=== PATIENT | female | born 1940 | race Caucasian/White ===

== ENCOUNTER 2022-01-23 05:20 | Observation (INO) ==
[2022-01-23] MEDS ORDERED: Naloxone 0.4 MG/ML INJ IVP PRN (10:26)
[2022-01-23 11:04] LABS: Basophils % 0.4 %; Eosinophils # 0.1 K/mcL (0.0-0.6); Eosinophils % 0.9 %; Hematocrit 39.6 % (35.3-44.9); Hemoglobin 13.2 g/dL (11.5-15.4); Immature Granulocytes % 0.4 % (0-4); Lymphocytes # 2.8 K/mcL (0.6-4.6); Lymphocytes % 25.8 %; Mean Corpuscular HGB Conc 33.3 g/dL (31.6-35.5); Mean Corpuscular Hemoglobin 32.2 pg (28.0-33.3); Mean Corpuscular Volume 96.6 fL (83.0-100.0); Mean Platelet Volume 10.2 fL (9.4-12.4); Monocytes # 0.7 K/mcL (0.0-1.3); Monocytes % 6.6 %; Neutrophils # 7.2 K/mcL (1.6-8.9); Platelet Count 261 K/mcL (140-400); Red Cell Distribution Width 13.2 % (11.5-14.5); Segmented Neutrophils % 65.9 %; White Blood Count 10.9 K/mcL (4.3-11.1)
[2022-01-23 11:24] LABS: Alanine Aminotransferase 7 Units/L (7-52); Albumin 3.9 g/dL (3.5-5.7); Albumin/Globulin Ratio 1.2 (1.1-2.2); Alkaline Phosphatase 59 Units/L (34-104); Aspartate Amino Transferase 13 Units/L (13-39); BUN/Creatinine Ratio 21 (6-26); Bilirubin,Total 0.7 mg/dL (0.3-1.0); Blood Urea Nitrogen 20 mg/dL (8-23); Calcium 9.2 mg/dL (8.6-10.3); Carbon Dioxide 25 mEq/L (23-29); Chloride 106 mEq/L (98-107); Globulin 3.3 g/dL (2.4-3.5); Glucose 120 mg/dL (70-105); Magnesium 1.7 mg/dL (1.6-2.6); Osmolality,Calculated 280 (280-300); Phosphorous 2.1 mg/dL (2.7-4.5); Potassium 3.9 mEq/L (3.5-5.1); Sodium 133 mEq/L (136-145); Total Protein 7.2 g/dL (6.4-8.9); eGFR For African Americans > 60 (> 60); eGFR For Non-African Americans 56 (> 60)
[2022-01-23] MEDS ORDERED: Ondansetron 4 MG/2 ML VIAL IVP PRN (14:31)
[2022-01-23] MEDS ORDERED: Acetaminophen 325 MG TABLET PO PRN (14:52)
[2022-01-23] MEDS ORDERED: Melatonin 3 MG TABLET PO PRN (14:59)
[2022-01-23] MEDS: polyethylene glycoL 3350 17 GM POWD.PACK PO SCH (15:31)
[2022-01-23] MEDS: MetroNIDAZOLE 500 MG/100 ML 500 MG/100 ML BAG IVPB SCH ×2 (15:31→23:09)
[2022-01-23] MEDS: Nystatin SUSP 5 ML UD.LIQ PO SCH ×2 (18:24→20:04)
[2022-01-23] MEDS: Sennosides/Docusate Sodium TABLET PO SCH (20:04)
[2022-01-23] MEDS ORDERED: QUEtiapine Fumarate 25 MG TABLET PO ONE (23:39)
[2022-01-24 05:21] LABS: Basophils % 0.4 %; Eosinophils # 0.2 K/mcL (0.0-0.6); Eosinophils % 1.8 %; Hematocrit 37.2 % (35.3-44.9); Hemoglobin 12.4 g/dL (11.5-15.4); Immature Granulocytes % 0.3 % (0-4); Lymphocytes # 2.9 K/mcL (0.6-4.6); Lymphocytes % 28.1 %; Mean Corpuscular HGB Conc 33.3 g/dL (31.6-35.5); Mean Corpuscular Hemoglobin 32.2 pg (28.0-33.3); Mean Corpuscular Volume 96.6 fL (83.0-100.0); Mean Platelet Volume 10.2 fL (9.4-12.4); Monocytes # 0.9 K/mcL (0.0-1.3); Monocytes % 8.1 %; Neutrophils # 6.4 K/mcL (1.6-8.9); Platelet Count 242 K/mcL (140-400); Red Blood Count 3.85 M/mcL (3.82-4.97); Red Cell Distribution Width 13.2 % (11.5-14.5); Segmented Neutrophils % 61.3 %; White Blood Count 10.5 K/mcL (4.3-11.1)
[2022-01-24] MEDS ORDERED: cefTRIAXone 1,000 MG in Water for inj. (sterile) 10 ML IVP SCH (09:00)
[2022-01-24] MEDS ORDERED: lisinopriL 20 MG TABLET PO SCH ×2 (09:00)
[2022-01-24] MEDS ORDERED: Bisacodyl 10 MG RECTAL SUPPOSITORY RC ONE (10:38)
[2022-01-24] MEDS: Sennosides/Docusate Sodium TABLET PO SCH ×2 (10:48→20:33)
[2022-01-24] MEDS: polyethylene glycoL 3350 17 GM POWD.PACK PO SCH (10:48)
[2022-01-24] MEDS: Nystatin SUSP 5 ML UD.LIQ PO SCH ×4 (10:48→20:33)
[2022-01-24] MEDS: MetroNIDAZOLE 500 MG/100 ML 500 MG/100 ML BAG IVPB SCH ×3 (10:50→23:09)
[2022-01-24] MEDS: Fluticasone Propionate Nasal 50 MCG/SPRAY BOTTLE NS SCH (10:50)
[2022-01-24] MEDS ORDERED: Milk and Molasses Enema 200 ML RC ONE (12:00)
[2022-01-24] MEDS: Divalproex Sodium 125 MG Sprinkle Capsule (DR) PO SCH (20:34)
[2022-01-25 04:18] LABS: Basophils # 0.1 K/mcL (0.0-0.2); Basophils % 0.6 %; Eosinophils # 0.3 K/mcL (0.0-0.6); Hematocrit 38.1 % (35.3-44.9); Hemoglobin 12.5 g/dL (11.5-15.4); Immature Granulocytes % 0.3 % (0-4); Lymphocytes # 3.4 K/mcL (0.6-4.6); Lymphocytes % 35.3 %; Mean Corpuscular HGB Conc 32.8 g/dL (31.6-35.5); Mean Corpuscular Hemoglobin 32.4 pg (28.0-33.3); Mean Corpuscular Volume 98.7 fL (83.0-100.0); Mean Platelet Volume 10.4 fL (9.4-12.4); Monocytes # 0.9 K/mcL (0.0-1.3); Monocytes % 9.1 %; Platelet Count 277 K/mcL (140-400); Red Blood Count 3.86 M/mcL (3.82-4.97); Red Cell Distribution Width 13.4 % (11.5-14.5); Segmented Neutrophils % 51.7 %; White Blood Count 9.6 K/mcL (4.3-11.1)
[2022-01-25 04:38] LABS: BUN/Creatinine Ratio 23 (6-26); Blood Urea Nitrogen 24 mg/dL (8-23); Carbon Dioxide 24 mEq/L (23-29); Chloride 107 mEq/L (98-107); Glucose 111 mg/dL (70-105); Osmolality,Calculated 293 (280-300); Potassium 4.1 mEq/L (3.5-5.1); Sodium 139 mEq/L (136-145); eGFR For African Americans > 60 (> 60); eGFR For Non-African Americans 51 (> 60)
[2022-01-25] MEDS ORDERED: lisinopriL 20 MG TABLET PO SCH (09:00)
[2022-01-25] MEDS: Nystatin SUSP 5 ML UD.LIQ PO SCH ×3 (09:39→17:53)
[2022-01-25] MEDS: metroNIDAZOLE 500 MG TABLET PO SCH ×2 (09:39→15:55)
[2022-01-25] MEDS: polyethylene glycoL 3350 17 GM POWD.PACK PO SCH (09:39)
[2022-01-25] MEDS: Sennosides/Docusate Sodium TABLET PO SCH (09:40)
[2022-01-25] MEDS: Divalproex Sodium 125 MG Sprinkle Capsule (DR) PO SCH (09:40)
[2022-01-25] MEDS: Fluticasone Propionate Nasal 50 MCG/SPRAY BOTTLE NS SCH (09:41)
[2022-01-25 16:13] VITALS: BP 165/73; PULSE 85; TEMP 97.5; O2SAT 100
== END 2022-01-25 19:06 | disposition hospice, home (50) ==
LOC: 3ANU → SUATTDRO 10:09
PROVIDERS: ADMIT Internal Medicine; ATTEND Internal Medicine